=== PATIENT | male | born 1990 | race Caucasian/White ===

== ENCOUNTER 2017-01-27 20:23 | Emergency (ER) | payer BC, OTHER ==
[2017-01-27 20:29] VITALS: RESP 16; TEMP 99
--- NOTE | 2017-01-27 23:17 | EDPHY ---
H & P Stated Complaint: pt fell rockclimbing, hyperflexed R ankle, c/o swelling/pain, unable to amb - Medical/Surgical History Hx Asthma: No Hx Chronic Respiratory Disease: No Hx Diabetes: No Hx Cardiac Disease: No Hx Renal Disease: No Hx Cirrhosis: No Hx Alcoholism: No Hx HIV/AIDS: No Hx Splenectomy or Spleen Trauma: No Other PMH: none - Social History Smoking Status: Never smoked HPI/ROS: Chief complaint: Right leg injury History of present illness: This is a 26-year-old male who presents to the emergency department for right leg injury. Patient was rock climbing earlier today when he fell striking his leg against the ledge. Since then he has had pain in the lower leg and ankle. It is typical and painful to move it. He is having difficulty ambulating. He denies associated signs or symptoms including no open wounds. No report of abnormal coolness or paresthesias in the right lower extremity. He denies trauma to or pain in the rest of his body including his head, neck, back including lower back, chest, abdomen, pelvis or other extremities. (Ky Porter) - Physical Exam Exam: General Appearance: Alert, nontoxic Eyes: PERRLA Respiratory: Lungs clear to auscultation bilaterally Cardiac: Regular rate and rhythm. Neurological: Alert and oriented x4. Strength and sensation intact and symmetrical. Skin: No open wounds to the right lower extremity. Musculoskeletal: Head is nontraumatic. The spine is nontender without crepitus , bony deformity or step-off. There is diffuse edema to the right ankle. The region is tender to palpation. He has not want a ranges secondary to pain. The foot, proximal lower leg, knee and upper leg on the right are nontender. He can move the digits in his right foot. He can move his right knee well. Other extremities are unremarkable. (Ky Porter) Constitutional: Initial Vital Signs Temperature (C) 37.2 C 01/27/17 20:26 Heart Rate 71 01/27/17 20:26 Respiratory Rate 16 01/27/17 20:26 Blood Pressure 134/67 H 01/27/17 20:26 O2 Sat (%) 98 01/27/17 20:26 O2 Delivery Mode Room Air Allergies/Adverse Reactions: No Known Allergies Allergy (Unverified 01/27/17 20:29) Home Medications: Medication Instructions Recorded Hydrocodone/APAP 5/325 [[place] 1 tab PO Q6H #10 tab 01/27/17 5/325 (*)] Medical Decision Making - Diagnostics Imaging: I viewed and interpreted images myself Procedures: Procedure: Splint placement. A posterior and sugar-tong splint was applied. After application of the splint I returned and re-examined the patient. The splint was adequately immobilizing the joint and distal to the splint the patient's circulation and sensation was intact. Patient is given crutches with instructions (Ky Porter) ED Course/Re-evaluation: Patient is seen under the supervision of my secondary supervising physician Dr. Didi Puente. Patient presents to the emergency department for a right lower leg/ankle injury. His right lower extremity is neurovascularly intact. By history and physical exam no evidence of trauma to other parts of the body. X- ray does confirm a tibial fracture. I have consulted with Mrs. Jeanine Kahn of Orthopedics. She is comfortable with patient being placed in a splint and following up in clinic next week. She requests that patient get a CT tonight to facilitate evaluation and treatment next week. This is ordered and performed. I reviewed results. Patient is discharged to follow up with Orthopedics. Home care including pain management is discussed. Strict return precautions are given. Patient voiced understanding and agreement with plan. ( Ky Porter) The patient was evaluated and managed by the physician records assistant. I have reviewed this chart and I agree with the findings and plan of care as documented , as indicated by my signature. I am the secondary supervising physician. ( Didi Puente) Differential Diagnosis: Included but not limited to contusion, sprain or strain, bony fracture, joint dislocation (Ky Porter) - Data Points Medications Given: Discontinued Medications Hydrocodone Bitart/Acetaminophen ([place] 5/325mg Prepack#6) 1 btl TAKEHOME EDNOW ONE Stop: 01/28/17 00:13 Last Admin: 01/28/17 00:16 Dose: 1 btl Departure - Departure Disposition: Home, Routine, Self-Care Clinical Impression: Ankle fracture Condition: Good Instructions: Hydrocodone/Acetaminophen (By mouth), Ankle Fracture (ED) Additional Instructions: Follow-up with Orthopedics next week for continued evaluation and care In regards to pain control see the following: Use ibuprofen [600] mg [3] times a day for the next 2-3 days for pain In addition You have been prescribed [[place]] for pain. [[place]] contains Tylenol, do not take extra Tylenol/acetaminophen/Apap with it. It is sedating. If symptoms worsen or new symptoms develop return to the emergency room for recheck Referrals: NONE *PRIMARY CARE P,. [Primary Care Provider] - As per Instructions Meena Kahn MD [Medical Doctor] - As per Instructions Prescriptions: Hydrocodone/APAP 5/325 [[place] 5/325 (*)] 1 tab PO Q6H #10 tab
[2017-01-27] MEDS ORDERED: HYDROCOD/APAP 5/325 PREPACK#6 BTL TAKEHOME ONE (23:54)
[2017-01-28 00:03] VITALS: BP 126/77; PULSE 70; O2SAT 94
[2017-01-28] MEDS ORDERED: HYDROCOD/APAP 5/325 PREPACK#6 BTL TAKEHOME ONE (00:12)
== END 2017-01-28 00:02 | disposition home or self-care (01) ==
DX: S82.251A Displaced comminuted fracture of shaft of right tibia, initial encounter for closed fracture (principal); W18.09XA Striking against other object with subsequent fall, initial encounter; Y99.8 Other external cause status; Y93.31 Activity, mountain climbing, rock climbing and wall climbing